=== PATIENT | female | born 1960 | race Caucasian/White ===

== ENCOUNTER 2024-02-27 13:43 | Inpatient (IN) ==
[2024-02-27 14:50] LABS: Hematocrit 37.6 % (35-45); Hemoglobin 12.5 g/dL (11.5-14.3); Mean Corpuscular Hemoglobin 29.1 pg (27-33); Mean Corpuscular Hgb Conc 33.3 g/dL (31-36); Mean Corpuscular Volume 87.3 fL (80-97); Mean Platelet Volume 6.7 fL (7.5-11.2); Platelet Count 563 10^3/uL (150-450); Red Blood Count 4.31 10^6/uL (3.63-4.92); Red Cell Distribution Width 15.4 % (12-17); White Blood Count 15.9 10^3/uL (3.8-11.8)
[2024-02-27 14:56] LABS: Venous Bicarbonate HCO3 24.4 mmol/L (24-28)
[2024-02-27 15:13] LABS: High Sens Troponin Baseline 25 pg/mL (<15)
[2024-02-27 15:37] LABS: ALT 94 U/L (7-52); Albumin 3.3 g/dL (3.2-5.2); Albumin/Globulin Ratio 1.1 (1-3); Alkaline Phosphatase 87 U/L (35-149); Blood Urea Nitrogen 22 mg/dL (6-24); CO2 Carbon Dioxide 27 mmol/L (22-32); Calcium 9.5 mg/dL (8.6-10.3); Chloride 87 mmol/L (101-111); Creatinine, Serum 0.69 mg/dL (0.51-0.95); Globulin 3.1 g/dL (2-4); Glucose 159 mg/dL (70-100); Sodium 123 mmol/L (135-145); Total Bilirubin 0.5 mg/dL (0.2-1.0); Total Protein 6.4 g/dL (6.4-8.9); eGFR CKD-EPI 96.3 (>60)
[2024-02-27 15:38] LABS: Anion Gap 9 mmol/L (2-16)
[2024-02-27 15:40] LABS: ABS Monocytes 1.2 10^3/uL (0.0-0.9); ABS Neutrophils 13.6 10^3/uL (1.5-7.6); ABS Nucleated RBC 0.02 10^3/ul; Eosinophil % 0.3 %; Lymphocyte % 6.6 %; Nucleated Red Blood Cells % 0.1 %/100WBC (0.0-0.8); RBC Morphology Normal (Normal)
[2024-02-27 15:41] LABS: TSH Ultra Thyroid Stim Horm 1.61 mcIU/mL (0.34-5.60)
[2024-02-27] MEDS: Piperacillin/Tazobac 3.375 BAG 3.375 GM/100 ML BAG IV ONE (16:05)
[2024-02-27] MEDS: Iohexol 350 (CONTRAST) 500 ML MDV IV ONE (16:28)
[2024-02-27 16:58] LABS: Magnesium 1.8 mg/dL (1.9-2.7); Potassium Redraw 4.7 mmol/L (3.5-5.0)
[2024-02-27] MEDS ORDERED: Ondansetron 4 mg VIAL 2 MG/ML 2 ml VIAL IV PRN (18:03)
[2024-02-27] MEDS ORDERED: Vancomycin 1,000 MG in NS 0.9% 250 ml 250 ML IVPB ONE (19:18)
[2024-02-27] MEDS ORDERED: Vancomycin per Pharmacy 1 EA NOTE FOLLOW UP SCH (20:00)
[2024-02-27 20:03] LABS: Urine Appearance Clear; Urine Bilirubin Negative (Negative); Urine Blood Trace (Negative); Urine Color Light-Yellow; Urine Glucose Negative (Negative); Urine Ketones Negative (Negative); Urine Nitrite Negative (Negative); Urine Protein 1+ (>=30 mg/dL) (Negative); Urine Specific Gravity 1.038 (1.002-1.030); Urine Urobilinogen Negative (Negative)
[2024-02-27 20:33] LABS: Urine Bacteria 1+ /HPF (Absent); Urine Red Blood Cell 1+(3-5/hpf) /HPF (0-Trace); Urine Squamous Epithelial Cell Present /HPF (Absent); Urine White Blood Cell Trace(0-5/hpf) /HPF (0-Trace)
[2024-02-27] MEDS: Furosemide 40 mg/4 ml IV VIAL IV SLOW PU ONE (20:39)
[2024-02-27] MEDS: methylPREDNISolone SOD SUCC 125 mg 2 ML VIAL IV ONE (20:39)
[2024-02-27 21:25] LABS: PCO2 Arterial 39 mmHg (35-45); PO2 Arterial 77 mmHg (80-100)
[2024-02-27 22:36] LABS: Osmolality Serum 272 mOsm/kg (275-295)
[2024-02-27] MEDS: Cefepime 2 GM in Dextrose 2 GM/50 ML BAG IV SCH (22:38)
[2024-02-27] MEDS: Vancomycin 1,250 MG in NS 0.9% 250 ml 250 ML IVPB ONE (23:35)
[2024-02-28 05:14] LABS: Hematocrit 35.6 % (35-45); Hemoglobin 12.1 g/dL (11.5-14.3); Mean Corpuscular Hemoglobin 29.7 pg (27-33); Mean Corpuscular Hgb Conc 33.9 g/dL (31-36); Mean Corpuscular Volume 87.6 fL (80-97); Mean Platelet Volume 6.8 fL (7.5-11.2); Platelet Count 590 10^3/uL (150-450); Red Blood Count 4.07 10^6/uL (3.63-4.92); Red Cell Distribution Width 15.9 % (12-17); White Blood Count 17.6 10^3/uL (3.8-11.8)
[2024-02-28 05:35] LABS: ABS Lymphocytes 0.5 10^3/uL (1.0-4.8); ABS Monocytes 0.4 10^3/uL (0.0-0.9); ABS Neutrophils 16.6 10^3/uL (1.5-7.6); ABS Nucleated RBC 0.03 10^3/ul; Eosinophil % 0.1 %; Lymphocyte % 2.9 %; Nucleated Red Blood Cells % 0.2 %/100WBC (0.0-0.8)
[2024-02-28 05:57] LABS: Albumin 3.3 g/dL (3.2-5.2); Calcium 9.2 mg/dL (8.6-10.3); Creatinine, Serum 0.71 mg/dL (0.51-0.95); Globulin 3.2 g/dL (2-4); Magnesium 1.7 mg/dL (1.9-2.7); Potassium 4.5 mmol/L (3.5-5.0); Total Bilirubin 0.4 mg/dL (0.2-1.0); Total Protein 6.5 g/dL (6.4-8.9); eGFR CKD-EPI 94.3 (>60)
[2024-02-28] MEDS: Sulfur Hexaflouride MICROSPHR 25 MG VIAL IV ONE ×2 (07:18→12:46)
[2024-02-28] MEDS: Magnesium Sulfate 2 gm BAG 2 GM/50 ML BAG IV ONE (07:54)
[2024-02-28] MEDS: Vancomycin 750 MG in NS 0.9% 250 ML IVPB SCH (09:07)
[2024-02-28] MEDS: Lidocaine 2% w EPI 1:100,000 20 ML MDV VIAL INJ ONE (10:15)
[2024-02-28 11:08] LABS: Body Fluid Total Nucleated 2165 /mcL
[2024-02-28 11:13] LABS: Body Fluid Appearance Cloudy; Body Fluid Color Amber; Body Fluid Source Pleural Fluid
[2024-02-28] MEDS: methylPREDNISolone SOD SUCC 125 mg 2 ML VIAL IV SCH (11:52)
[2024-02-28] MEDS: Enoxaparin 80 MG/0.8 ML SYR SUBCUT SCH (11:53)
[2024-02-28] MEDS: Heparin DRIP 25,000 UNITS BAG 25,000 UNITS/250 ML BAG IV SCH ×2 (13:55→14:28)
[2024-02-28 14:03] LABS: Body Fluid Mono 12 %; Body Fluid Other Cells 12; Body Fluid Total Cells Counted 200
[2024-02-28] MEDS: Heparin 5000 UNITS/ML 1 mL VIAL IV SCH (14:27)
[2024-02-28 17:47] LABS: Urine Osmo 567 mOsm/kg (150-1150)
[2024-02-28] MEDS: Cefepime 2 GM in Dextrose 2 GM/50 ML BAG IV SCH (23:57)
[2024-02-29] MEDS: Haloperidol 5 mg/ml SDV IV/IM 5 MG/ML AMP IV SLOW PU ONE (01:12)
[2024-02-29] MEDS: NS 0.9% 1000 ml BAG 1,000 ML IV ONE (01:22)
[2024-02-29 04:09] LABS: Hematocrit 36.3 % (35-45); Hemoglobin 12.2 g/dL (11.5-14.3); Mean Corpuscular Hemoglobin 29.4 pg (27-33); Mean Corpuscular Hgb Conc 33.6 g/dL (31-36); Mean Corpuscular Volume 87.7 fL (80-97); Mean Platelet Volume 6.9 fL (7.5-11.2); Platelet Count 625 10^3/uL (150-450); Red Blood Count 4.15 10^6/uL (3.63-4.92); Red Cell Distribution Width 15.5 % (12-17); White Blood Count 16.2 10^3/uL (3.8-11.8)
[2024-02-29 04:46] LABS: Calcium 9.4 mg/dL (8.6-10.3); Creatinine, Serum 0.65 mg/dL (0.51-0.95); Potassium 4.2 mmol/L (3.5-5.0); eGFR CKD-EPI 97.6 (>60)
[2024-02-29 05:15] LABS: ABS Basophils 0.1 10^3/uL (0.0-0.1); ABS Monocytes 1.7 10^3/uL (0.0-0.9); ABS Neutrophils 13.3 10^3/uL (1.5-7.6); ABS Nucleated RBC 0.03 10^3/ul; Eosinophil % 0.2 %; Lymphocyte % 6.3 %; Nucleated Red Blood Cells % 0.2 %/100WBC (0.0-0.8)
[2024-02-29] MEDS ORDERED: Vancomycin Trough Check NOTE FOLLOW UP ONE (07:30)
[2024-02-29] MEDS: Metoprolol Tartrate 5 mg VIAL 5 ml VIAL (1 mg/ml) IV ONE (11:02)
[2024-02-29 14:33] LABS: Fluid Type, Protein, Total PLEURAL FLUID; Total Protein, BF 3.3 g/dL
[2024-02-29] MEDS: Nitro 2% OINT (Nitroglycerin) 1 INCH/PAK TOPICAL ONE (14:33)
[2024-02-29 14:47] LABS: High Sensitivity Troponin 1 Hr 31 pg/mL (<15)
[2024-02-29 16:19] LABS: Lactate Dehydrogenase, BF 261 U/L
[2024-03-01 00:37] LABS: Urine Osmo 302 mOsm/kg (150-1150)
[2024-03-01 06:31] LABS: Hematocrit 34.6 % (35-45); Hemoglobin 11.9 g/dL (11.5-14.3); Mean Corpuscular Hemoglobin 30.3 pg (27-33); Mean Corpuscular Hgb Conc 34.5 g/dL (31-36); Mean Platelet Volume 6.6 fL (7.5-11.2); Platelet Count 608 10^3/uL (150-450); Red Blood Count 3.93 10^6/uL (3.63-4.92); White Blood Count 12.8 10^3/uL (3.8-11.8)
[2024-03-01 07:22] LABS: Calcium 9.2 mg/dL (8.6-10.3); Creatinine, Serum 0.62 mg/dL (0.51-0.95); Magnesium 1.8 mg/dL (1.9-2.7); Potassium 4.9 mmol/L (3.5-5.0); eGFR CKD-EPI 98.8 (>60)
[2024-03-01] MEDS: Amiodarone 400 mg TAB PO SCH (08:19)
[2024-03-01 08:43] LABS: ABS Basophils 0.1 10^3/uL (0.0-0.1); ABS Eosinophils 0.1 10^3/uL (0.0-0.5); ABS Lymphocytes 1.1 10^3/uL (1.0-4.8); ABS Monocytes 1.4 10^3/uL (0.0-0.9); ABS Neutrophils 10.1 10^3/uL (1.5-7.6); ABS Nucleated RBC 0.01 10^3/ul; Eosinophil % 0.5 %; Lymphocyte % 8.2 %; Nucleated Red Blood Cells % 0.1 %/100WBC (0.0-0.8); RBC Morphology Normal (Normal)
[2024-03-01] MEDS: cefTRIAXone 1 gm/50 mL D5W 1 GM/50 ML BAG IV SCH (10:54)
[2024-03-01] MEDS: Nitro 2% OINT (Nitroglycerin) 1 INCH/PAK TOPICAL ONE (14:24)
[2024-03-01] MEDS: Furosemide 40 mg/4 ml IV VIAL IV ONE (15:04)
[2024-03-01] MEDS: Senna TAB 8.6 mg TAB PO PRN (20:10)
[2024-03-01] MEDS: Albuterol/Ipratropium NEB.SOL (2.5/0.5 MG) 3 ML NEB.SOLN INH PRN (23:15)
[2024-03-02 03:05] LABS: ABS Eosinophils 0.1 10^3/uL (0.0-0.5); ABS Lymphocytes 0.9 10^3/uL (1.0-4.8); ABS Monocytes 1.3 10^3/uL (0.0-0.9); ABS Neutrophils 7.6 10^3/uL (1.5-7.6); ABS Nucleated RBC 0.01 10^3/ul; Hematocrit 32.4 % (35-45); Hemoglobin 11.2 g/dL (11.5-14.3); Lymphocyte % 8.7 %; Mean Corpuscular Hgb Conc 34.4 g/dL (31-36); Mean Corpuscular Volume 87.1 fL (80-97); Mean Platelet Volume 6.9 fL (7.5-11.2); Nucleated Red Blood Cells % 0.1 %/100WBC (0.0-0.8); Platelet Count 563 10^3/uL (150-450); Red Blood Count 3.72 10^6/uL (3.63-4.92); Red Cell Distribution Width 16.3 % (12-17); White Blood Count 9.9 10^3/uL (3.8-11.8)
[2024-03-02 03:29] LABS: Calcium 8.4 mg/dL (8.6-10.3); Creatinine, Serum 0.69 mg/dL (0.51-0.95); Magnesium 1.8 mg/dL (1.9-2.7); Potassium 4.4 mmol/L (3.5-5.0); eGFR CKD-EPI 96.3 (>60)
[2024-03-02 09:21] LABS: Phosphorus 2.9 mg/dL (2.5-5.0)
[2024-03-02] MEDS: Magnesium Sulfate 2 gm BAG 2 GM/50 ML BAG IVPB ONE (09:42)
[2024-03-02 13:50] LABS: Ferritin 451.6 ng/mL (11-307)
[2024-03-02] MEDS: Albuterol HFA INHALER 8 gm MDI INH PRN (17:31)
[2024-03-03 08:16] LABS: ABS Eosinophils 0.1 10^3/uL (0.0-0.5); ABS Lymphocytes 0.6 10^3/uL (1.0-4.8); ABS Monocytes 1.2 10^3/uL (0.0-0.9); ABS Neutrophils 7.7 10^3/uL (1.5-7.6); Eosinophil % 0.8 %; Hematocrit 34.6 % (35-45); Hemoglobin 11.9 g/dL (11.5-14.3); Lymphocyte % 6.5 %; Mean Corpuscular Hgb Conc 34.5 g/dL (31-36); Mean Corpuscular Volume 87.2 fL (80-97); Mean Platelet Volume 6.6 fL (7.5-11.2); Platelet Count 546 10^3/uL (150-450); Red Blood Count 3.97 10^6/uL (3.63-4.92); White Blood Count 9.7 10^3/uL (3.8-11.8)
[2024-03-03 08:34] LABS: Calcium 8.6 mg/dL (8.6-10.3); Creatinine, Serum 0.68 mg/dL (0.51-0.95); Potassium 4.4 mmol/L (3.5-5.0); eGFR CKD-EPI 96.6 (>60)
[2024-03-03] MEDS: Polyethylene Glycol 3350 17 GM PACKET PO PRN (09:16)
[2024-03-04] MEDS: Nitro 2% OINT (Nitroglycerin) 1 INCH/PAK TOPICAL ONE (01:59)
[2024-03-04 06:39] LABS: Hematocrit 32.9 % (35-45); Hemoglobin 11.1 g/dL (11.5-14.3); Mean Corpuscular Hemoglobin 29.8 pg (27-33); Mean Corpuscular Hgb Conc 33.8 g/dL (31-36); Mean Corpuscular Volume 88.2 fL (80-97); Mean Platelet Volume 6.4 fL (7.5-11.2); Platelet Count 524 10^3/uL (150-450); Red Blood Count 3.73 10^6/uL (3.63-4.92); Red Cell Distribution Width 16.6 % (12-17); White Blood Count 8.5 10^3/uL (3.8-11.8)
[2024-03-04 07:01] LABS: ABS Basophils 0.1 10^3/uL (0.0-0.1); ABS Eosinophils 0.1 10^3/uL (0.0-0.5); ABS Lymphocytes 0.6 10^3/uL (1.0-4.8); ABS Neutrophils 6.7 10^3/uL (1.5-7.6); Eosinophil % 1.1 %; Lymphocyte % 7.2 %
[2024-03-04 07:29] LABS: Creatinine, Serum 0.71 mg/dL (0.51-0.95); Potassium 4.3 mmol/L (3.5-5.0); eGFR CKD-EPI 94.3 (>60)
[2024-03-04] MEDS ORDERED: Magnesium Hydroxide LIQ 30 ML UDC PO PRN (08:15)
[2024-03-04] MEDS: Magnesium Hydroxide LIQ 30 ML UDC PO SCH (09:22)
[2024-03-04] MEDS: Polyethylene Glycol 3350 17 GM PACKET PO SCH (09:25)
[2024-03-04 09:53] VITALS: BP 96/57
[2024-03-04] MEDS ORDERED: Senna TAB 8.6 mg TAB PO SCH (21:00)
== END 2024-03-04 13:39 | disposition home or self-care (01) | DRG 871 ==
LOC: ED 13:43 → SUATTDRO 18:03 → EDHOLD 18:03 → ICU 02-28 04:00 → MEDTELE 03-01 16:28
PROVIDERS: ADMIT Internal Medicine; ATTEND Internal Medicine

== ENCOUNTER 2024-04-02 06:21 | Inpatient (IN) ==
[2024-04-02 07:04] LABS: PCO2 Arterial 37 mmHg (35-45); PO2 Arterial 67 mmHg (80-100)
[2024-04-02 07:18] LABS: ABS Basophils 0.1 10^3/uL (0.0-0.1); ABS Eosinophils 0.1 10^3/uL (0.0-0.5); ABS Lymphocytes 0.6 10^3/uL (1.0-4.8); ABS Monocytes 0.9 10^3/uL (0.0-0.9); ABS Neutrophils 7.1 10^3/uL (1.5-7.6); Eosinophil % 0.8 %; Hematocrit 33.9 % (35-45); Hemoglobin 11.5 g/dL (11.5-14.3); Mean Corpuscular Hemoglobin 30.5 pg (27-33); Mean Corpuscular Volume 89.8 fL (80-97); Mean Platelet Volume 7.1 fL (7.5-11.2); Platelet Count 405 10^3/uL (150-450); Red Blood Count 3.77 10^6/uL (3.63-4.92); White Blood Count 8.7 10^3/uL (3.8-11.8)
[2024-04-02 07:30] LABS: INR 1.1 (0.83-1.13)
[2024-04-02 08:00] LABS: Albumin 3.4 g/dL (3.2-5.2); Albumin/Globulin Ratio 1.4 (1-3); C Reactive Protein 5.6 mg/L (<8.01); Calcium 9.1 mg/dL (8.6-10.3); Creatinine, Serum 0.9 mg/dL (0.51-0.95); Globulin 2.5 g/dL (2-4); Potassium 4.1 mmol/L (3.5-5.0); Total Bilirubin 0.4 mg/dL (0.2-1.0); Total Protein 5.9 g/dL (6.4-8.9); eGFR CKD-EPI 70.9 (>60)
[2024-04-02] MEDS: Furosemide 40 mg/4 ml IV VIAL IV SLOW PU ONE (08:23)
[2024-04-02] MEDS: Iohexol 350 (CONTRAST) 500 ML MDV IV ONE (08:54)
[2024-04-02 10:26] LABS: High Sensitivity Troponin 1 Hr 9 pg/mL (<15)
[2024-04-02 10:39] LABS: Urine Appearance Clear; Urine Bilirubin Negative (Negative); Urine Blood Negative (Negative); Urine Color Colorless; Urine Glucose Negative (Negative); Urine Ketones Negative (Negative); Urine Nitrite Negative (Negative); Urine Protein Negative (Negative); Urine Specific Gravity 1.011 (1.002-1.030); Urine Urobilinogen Negative (Negative)
[2024-04-02] MEDS ORDERED: Albuterol HFA INHALER 8 gm MDI INH PRN (13:44)
[2024-04-02] MEDS: Furosemide 40 mg/4 ml IV VIAL IV ONE (15:00)
[2024-04-02] MEDS: Benzocaine/Menthol LOZ PO PRN (21:14)
[2024-04-02] MEDS: Heparin 5000 UNITS/ML 1 mL VIAL SUBCUT SCH (22:59)
[2024-04-03 05:54] LABS: ABS Eosinophils 0.1 10^3/uL (0.0-0.5); ABS Lymphocytes 0.6 10^3/uL (1.0-4.8); ABS Monocytes 1.2 10^3/uL (0.0-0.9); ABS Neutrophils 6.6 10^3/uL (1.5-7.6); ABS Nucleated RBC 0.01 10^3/ul; Eosinophil % 1.4 %; Hematocrit 34.7 % (35-45); Hemoglobin 11.7 g/dL (11.5-14.3); Lymphocyte % 7.4 %; Mean Corpuscular Hemoglobin 30.1 pg (27-33); Mean Corpuscular Hgb Conc 33.5 g/dL (31-36); Mean Corpuscular Volume 89.8 fL (80-97); Mean Platelet Volume 6.6 fL (7.5-11.2); Nucleated Red Blood Cells % 0.1 %/100WBC (0.0-0.8); Platelet Count 387 10^3/uL (150-450); Red Blood Count 3.87 10^6/uL (3.63-4.92); Red Cell Distribution Width 16.6 % (12-17); White Blood Count 8.6 10^3/uL (3.8-11.8)
[2024-04-03 06:30] LABS: Creatinine, Serum 0.99 mg/dL (0.51-0.95); Magnesium 1.7 mg/dL (1.9-2.7); Phosphorus 4.3 mg/dL (2.5-5.0); Potassium 3.7 mmol/L (3.5-5.0); eGFR CKD-EPI 63.3 (>60)
[2024-04-03] MEDS: [UNRECOGNIZED DRUG - OTHER] PO SCH (10:27)
[2024-04-03] MEDS: Magnesium Sulfate 2 gm BAG 2 GM/50 ML BAG IVPB ONE (10:30)
[2024-04-03] MEDS: Furosemide 40 mg/4 ml IV VIAL IV SLOW PU ONE (10:43)
[2024-04-03] MEDS: Enoxaparin 80 MG/0.8 ML SYR SUBCUT SCH (19:41)
[2024-04-04 09:49] LABS: ABS Basophils 0.1 10^3/uL (0.0-0.1); ABS Eosinophils 0.1 10^3/uL (0.0-0.5); ABS Lymphocytes 0.5 10^3/uL (1.0-4.8); ABS Monocytes 1.1 10^3/uL (0.0-0.9); ABS Neutrophils 6.8 10^3/uL (1.5-7.6); Eosinophil % 1.2 %; Hematocrit 30.7 % (35-45); Hemoglobin 10.6 g/dL (11.5-14.3); Lymphocyte % 5.7 %; Mean Corpuscular Hemoglobin 30.8 pg (27-33); Mean Corpuscular Hgb Conc 34.5 g/dL (31-36); Mean Corpuscular Volume 89.4 fL (80-97); Mean Platelet Volume 6.8 fL (7.5-11.2); Platelet Count 352 10^3/uL (150-450); Red Blood Count 3.44 10^6/uL (3.63-4.92); Red Cell Distribution Width 17.2 % (12-17); White Blood Count 8.6 10^3/uL (3.8-11.8)
[2024-04-04 10:06] LABS: Calcium 8.9 mg/dL (8.6-10.3); Creatinine, Serum 0.8 mg/dL (0.51-0.95); Magnesium 1.9 mg/dL (1.9-2.7); Potassium 3.4 mmol/L (3.5-5.0); eGFR CKD-EPI 81.7 (>60)
[2024-04-04] MEDS: Furosemide 40 mg/4 ml IV VIAL IV SLOW PU ONE (11:08)
[2024-04-04] MEDS: Potassium Chlor 20 meq TAB.ER PO ONE (13:58)
[2024-04-04] MEDS: Morphine 2 MG/ML SYRINGE IV ONE ×2 (14:07→14:10)
[2024-04-04] MEDS: Lidocaine PATCH 5% PATCH TRANSDERM SCH (16:47)
[2024-04-05] MEDS: Morphine 2 MG/ML SYRINGE IV ONE (01:05)
[2024-04-05 07:31] LABS: Hematocrit 32.1 % (35-45); Hemoglobin 10.8 g/dL (11.5-14.3); Mean Corpuscular Hemoglobin 30.2 pg (27-33); Mean Corpuscular Hgb Conc 33.6 g/dL (31-36); Mean Corpuscular Volume 89.9 fL (80-97); Red Blood Count 3.57 10^6/uL (3.63-4.92); Red Cell Distribution Width 16.9 % (12-17)
[2024-04-05 07:39] LABS: Anion Gap 7 mmol/L (2-16); Blood Urea Nitrogen 13 mg/dL (6-24); CO2 Carbon Dioxide 27 mmol/L (22-32); Calcium 8.9 mg/dL (8.6-10.3); Chloride 93 mmol/L (101-111); Creatinine, Serum 0.78 mg/dL (0.51-0.95); Glucose 90 mg/dL (70-100); Sodium 127 mmol/L (135-145); eGFR CKD-EPI 84.2 (>60)
[2024-04-05 08:21] LABS: ABS Basophils 0.1 10^3/uL (0.0-0.1); ABS Eosinophils 0.1 10^3/uL (0.0-0.5); ABS Lymphocytes 0.7 10^3/uL (1.0-4.8); ABS Monocytes 1.5 10^3/uL (0.0-0.9); ABS Neutrophils 8.9 10^3/uL (1.5-7.6); ABS Nucleated RBC 0.04 10^3/ul; Eosinophil % 1.1 %; Lymphocyte % 6.6 %; Mean Platelet Volume 7.4 fL (7.5-11.2); Nucleated Red Blood Cells % 0.4 %/100WBC (0.0-0.8); Platelet Count 320 10^3/uL (150-450); White Blood Count 11.3 10^3/uL (3.8-11.8)
[2024-04-05] MEDS ORDERED: Buffered Lidocaine 1% SYRIN 1 ml ONE (09:33)
[2024-04-05] MEDS ORDERED: ceFAZolin 2 GM in NS PREMIX 2 GM/100 ML BAG IVPB ONE (10:09)
[2024-04-05] MEDS: Furosemide 40 mg/4 ml IV VIAL IV SLOW PU ONE ×2 (15:35→17:13)
[2024-04-06 07:54] LABS: Hematocrit 32.2 % (35-45); Hemoglobin 10.9 g/dL (11.5-14.3); Mean Corpuscular Hemoglobin 30.5 pg (27-33); Mean Corpuscular Hgb Conc 33.8 g/dL (31-36); Mean Corpuscular Volume 90.1 fL (80-97); Platelet Count 352 10^3/uL (150-450); Red Blood Count 3.57 10^6/uL (3.63-4.92); White Blood Count 9.9 10^3/uL (3.8-11.8)
[2024-04-06 22:32] LABS: Body Fluid Total Nucleated 2117 /mcL
[2024-04-06 22:36] LABS: Body Fluid Source Pleural Fluid
[2024-04-06 22:37] LABS: Body Fluid Appearance Cloudy; Body Fluid Color Yellow
[2024-04-06] MEDS: Senna TAB 8.6 mg TAB PO PRN (22:49)
[2024-04-07 01:16] LABS: Body Fluid Mono 3 %; Body Fluid Other Cells 4; Body Fluid Total Cells Counted 200
[2024-04-07] MEDS: Magnesium Hydroxide LIQ 30 ML UDC PO PRN (06:04)
[2024-04-07] MEDS: Morphine 2 MG/ML SYRINGE IV ONE (09:31)
[2024-04-07] MEDS: Furosemide 40 mg/4 ml IV VIAL IV SLOW PU ONE (11:35)
[2024-04-07] MEDS: Enoxaparin 100 MG/ML SYR SUBCUT ONE (18:46)
[2024-04-08] MEDS: Polyethylene Glycol 3350 17 GM PACKET PO SCH (02:30)
[2024-04-08 11:30] LABS: Body Fluid Appearance Clear; Body Fluid Color Yellow; Body Fluid Source Pleural Fluid
[2024-04-08 12:17] LABS: Body Fluid Mono 13 %; Body Fluid Other Cells 94; Body Fluid Total Cells Counted 200
[2024-04-08 12:18] LABS: Body Fluid Total Nucleated 306 /mcL
[2024-04-08] MEDS: Furosemide 40 mg/4 ml IV VIAL IV ONE (12:33)
[2024-04-08] MEDS: Enoxaparin 80 MG/0.8 ML SYR SUBCUT SCH (12:33)
[2024-04-08 16:21] LABS: Hemoglobin 11.6 g/dL (11.5-14.3); Mean Corpuscular Hemoglobin 29.8 pg (27-33); Mean Corpuscular Hgb Conc 33.2 g/dL (31-36); Mean Corpuscular Volume 89.7 fL (80-97); Mean Platelet Volume 6.6 fL (7.5-11.2); Platelet Count 324 10^3/uL (150-450); White Blood Count 8.6 10^3/uL (3.8-11.8)
[2024-04-08 16:50] LABS: Creatinine, Serum 1.09 mg/dL (0.51-0.95); Magnesium 1.9 mg/dL (1.9-2.7); eGFR CKD-EPI 56.4 (>60)
[2024-04-09 11:05] LABS: Lactate Dehydrogenase, BF 108 U/L
[2024-04-09 11:08] VITALS: BP 90/53
[2024-04-09 11:10] LABS: Fluid Type, Protein, Total PLEURAL FLUID; Glucose, BF 128 mg/dL; Total Protein, BF 3.5 g/dL
[2024-04-09 11:34] LABS: Calcium 8.9 mg/dL (8.6-10.3); Creatinine, Serum 0.93 mg/dL (0.51-0.95); Magnesium 1.9 mg/dL (1.9-2.7); Potassium 3.9 mmol/L (3.5-5.0); eGFR CKD-EPI 68.2 (>60)
[2024-04-09 11:46] LABS: Hematocrit 32.4 % (35-45); Mean Corpuscular Hemoglobin 30.5 pg (27-33); Mean Corpuscular Hgb Conc 33.9 g/dL (31-36); Mean Platelet Volume 7.3 fL (7.5-11.2); Platelet Count 310 10^3/uL (150-450); Red Blood Count 3.61 10^6/uL (3.63-4.92); Red Cell Distribution Width 16.7 % (12-17); White Blood Count 7.3 10^3/uL (3.8-11.8)
[2024-04-09] MEDS: Furosemide 40 mg/4 ml IV VIAL IV SLOW PU ONE (12:04)
[2024-04-11 10:12] LABS: Albumin, BF 2.3 g/dL; Fluid Type, Albumin PLEURAL FLUID; Fluid Type, Amylase PLEURAL FLUID; Fluid Type, Protein, Total PLEURAL FLUID; Fluid Type: PLEURAL FLUID; Glucose, BF 111 mg/dL; Total Protein, BF 3.2 g/dL
[2024-04-11 10:14] LABS: Lactate Dehydrogenase, BF 92 U/L
[2024-04-11 10:52] LABS: Fluid Type: PLEURAL FLUID; Triglycerides (BF) 16 mg/dL
[2024-04-11 10:53] LABS: Body Fluid Bilirubin 0.4 mg/dL; Fluid Type PLEURAL FLUID
== END 2024-04-09 14:20 | disposition home or self-care (01) | DRG 987 ==
LOC: ED 06:21 → EDHOLD 06:21 → SUATTDRO 12:28 → MEDTELE 04-03 15:42
PROVIDERS: ADMIT Internal Medicine; ATTEND Student in an Organized Health Care Education/Training Program

== ENCOUNTER 2024-06-25 10:35 | Inpatient (IN) ==
[2024-06-25] MEDS: Lactated Ringers 1000 ml BAG 1,000 ML IV ONE (11:40)
[2024-06-25 11:52] LABS: ABS Lymphocytes 0.4 10^3/uL (1.0-4.8); ABS Monocytes 0.6 10^3/uL (0.0-0.9); ABS Neutrophils 5.8 10^3/uL (1.5-7.6); Eosinophil % 0.5 %; Hematocrit 42.4 % (35-45); Hemoglobin 14.1 g/dL (11.5-14.3); Lymphocyte % 6.4 %; Mean Corpuscular Hemoglobin 29.8 pg (27-33); Mean Corpuscular Hgb Conc 33.4 g/dL (31-36); Mean Corpuscular Volume 89.2 fL (80-97); Mean Platelet Volume 7.7 fL (7.5-11.2); Nucleated Red Blood Cells % 0.1 %/100WBC (0.0-0.8); Platelet Count 413 10^3/uL (150-450); Red Blood Count 4.75 10^6/uL (3.63-4.92); Red Cell Distribution Width 15.9 % (12-17); White Blood Count 6.8 10^3/uL (3.8-11.8)
[2024-06-25 12:19] LABS: High Sens Troponin Baseline 8 pg/mL (<15)
[2024-06-25 12:22] LABS: ALT 11 U/L (7-52); Albumin 3.7 g/dL (3.2-5.2); Albumin/Globulin Ratio 1.4 (1-3); Alkaline Phosphatase 97 U/L (35-149); Anion Gap 8 mmol/L (2-16); Blood Urea Nitrogen 27 mg/dL (6-24); C Reactive Protein 5.05 mg/L (<8.01); CO2 Carbon Dioxide 25 mmol/L (22-32); Calcium 9.9 mg/dL (8.6-10.3); Chloride 93 mmol/L (101-111); Creatinine, Serum 1.47 mg/dL (0.51-0.95); Globulin 2.7 g/dL (2-4); Glucose 114 mg/dL (70-100); Sodium 126 mmol/L (135-145); Total Protein 6.4 g/dL (6.4-8.9); eGFR CKD-EPI 39.4 (>60)
[2024-06-25] MEDS: Iodixanol 320 (CONTRAST) 100 ML SDV IV ONE (13:12)
[2024-06-25] MEDS ORDERED: Sulfur Hexaflouride MICROSPHR 25 MG VIAL IV PRN (14:04)
[2024-06-25 15:27] LABS: Potassium Redraw 4.1 mmol/L (3.5-5.0)
[2024-06-25] MEDS: Norepinephrine 4 MG/250mL D5W 4,000 MCG/250 ML BAG IV SCH (17:30)
[2024-06-25] MEDS ORDERED: Albuterol HFA INHALER 8 gm MDI INH PRN (17:55)
[2024-06-25] MEDS: Norepinephrine 4 MG/250mL D5W 4,000 MCG/250 ML BAG IV ONE (18:07)
[2024-06-25] MEDS: Lidocaine 1% VIAL 10 MG/ML 30 ML VIAL ONE (18:07)
[2024-06-25] MEDS: Albumin Human 25% 25 GM/100 ML BTL IV ONE (18:24)
[2024-06-25] MEDS: Heparin 5000 UNITS/ML 1 mL VIAL SUBCUT SCH (21:05)
[2024-06-26 04:15] LABS: ABS Lymphocytes 0.5 10^3/uL (1.0-4.8); ABS Monocytes 0.6 10^3/uL (0.0-0.9); ABS Neutrophils 8.4 10^3/uL (1.5-7.6); Eosinophil % 0.2 %; Hematocrit 42.4 % (35-45); Hemoglobin 14.3 g/dL (11.5-14.3); Lymphocyte % 5.4 %; Mean Corpuscular Hemoglobin 29.8 pg (27-33); Mean Corpuscular Hgb Conc 33.6 g/dL (31-36); Mean Corpuscular Volume 88.7 fL (80-97); Mean Platelet Volume 7.5 fL (7.5-11.2); Platelet Count 473 10^3/uL (150-450); Red Blood Count 4.78 10^6/uL (3.63-4.92); White Blood Count 9.7 10^3/uL (3.8-11.8)
[2024-06-26 04:31] LABS: Calcium 9.6 mg/dL (8.6-10.3); Creatinine, Serum 1.24 mg/dL (0.51-0.95); Magnesium 1.8 mg/dL (1.9-2.7); Potassium 4.6 mmol/L (3.5-5.0); eGFR CKD-EPI 48.3 (>60)
[2024-06-26] MEDS: Magnesium Sulfate 2 gm BAG 2 GM/50 ML BAG IVPB ONE (05:53)
[2024-06-26 11:41] LABS: Body Fluid Total Nucleated 454 /mcL
[2024-06-26 11:50] LABS: Body Fluid Appearance Bloody; Body Fluid Color Red; Body Fluid Source Pleural Fluid
[2024-06-26 12:48] LABS: Body Fluid Mono 21 %; Body Fluid Other Cells 45; Body Fluid Total Cells Counted 200
[2024-06-27 05:13] LABS: ABS Basophils 0.1 10^3/uL (0.0-0.1); ABS Lymphocytes 0.7 10^3/uL (1.0-4.8); ABS Monocytes 0.8 10^3/uL (0.0-0.9); ABS Neutrophils 5.7 10^3/uL (1.5-7.6); Eosinophil % 0.6 %; Hematocrit 39.1 % (35-45); Hemoglobin 13.5 g/dL (11.5-14.3); Lymphocyte % 9.8 %; Mean Corpuscular Hgb Conc 34.6 g/dL (31-36); Mean Corpuscular Volume 86.9 fL (80-97); Mean Platelet Volume 7.5 fL (7.5-11.2); Nucleated Red Blood Cells % 0.1 %/100WBC (0.0-0.8); Platelet Count 359 10^3/uL (150-450); Red Cell Distribution Width 16.2 % (12-17); White Blood Count 7.3 10^3/uL (3.8-11.8)
[2024-06-27 06:15] LABS: Anion Gap 6 mmol/L (2-16); Blood Urea Nitrogen 13 mg/dL (6-24); CO2 Carbon Dioxide 24 mmol/L (22-32); Calcium 8.6 mg/dL (8.6-10.3); Chloride 98 mmol/L (101-111); Creatinine, Serum 0.78 mg/dL (0.51-0.95); Glucose 124 mg/dL (70-100); Sodium 128 mmol/L (135-145); eGFR CKD-EPI 84.2 (>60)
[2024-06-27 08:35] LABS: Magnesium 1.8 mg/dL (1.9-2.7); Potassium Redraw 4.1 mmol/L (3.5-5.0)
[2024-06-27 16:31] VITALS: BP 85/55
[2024-06-28 13:22] LABS: Fluid Type, Protein, Total PLEURAL FLUID; Total Protein, BF 3.7 g/dL
[2024-06-28 13:22] LABS: Fluid Type, Protein, Total PLEURAL FLUID; Total Protein, BF 3.3 g/dL
[2024-06-28 15:31] LABS: Lactate Dehydrogenase, BF 122 U/L
[2024-06-28 15:31] LABS: Lactate Dehydrogenase, BF 110 U/L
== END 2024-06-27 16:50 | disposition home or self-care (01) | DRG 189 ==
LOC: ED 10:35 → EDHOLD 14:49 → ICU 16:33
PROVIDERS: ADMIT Internal Medicine Critical Care Medicine; ATTEND Internal Medicine Critical Care Medicine

== ENCOUNTER 2024-07-03 19:30 | Inpatient (IN) ==
[2024-07-03 21:13] LABS: ABS Lymphocytes 0.5 10^3/uL (1.0-4.8); ABS Monocytes 0.7 10^3/uL (0.0-0.9); ABS Neutrophils 5.3 10^3/uL (1.5-7.6); Eosinophil % 0.4 %; Lymphocyte % 7.6 %; Mean Corpuscular Hemoglobin 29.3 pg (27-33); Mean Corpuscular Hgb Conc 33.3 g/dL (31-36); Mean Corpuscular Volume 88.2 fL (80-97); Mean Platelet Volume 6.7 fL (7.5-11.2); Platelet Count 358 10^3/uL (150-450); Red Blood Count 4.42 10^6/uL (3.63-4.92); White Blood Count 6.5 10^3/uL (3.8-11.8)
[2024-07-03 21:36] LABS: High Sens Troponin Baseline 25 pg/mL (<15)
[2024-07-03 21:49] LABS: ALT 16 U/L (7-52); Albumin 3.7 g/dL (3.2-5.2); Albumin/Globulin Ratio 1.5 (1-3); Alkaline Phosphatase 92 U/L (35-149); Anion Gap 5 mmol/L (2-16); Blood Urea Nitrogen 12 mg/dL (6-24); CO2 Carbon Dioxide 29 mmol/L (22-32); Calcium 9.4 mg/dL (8.6-10.3); Chloride 97 mmol/L (101-111); Creatinine, Serum 0.76 mg/dL (0.51-0.95); Globulin 2.4 g/dL (2-4); Glucose 109 mg/dL (70-100); Sodium 131 mmol/L (135-145); Total Bilirubin 0.9 mg/dL (0.2-1.0); Total Protein 6.1 g/dL (6.4-8.9); eGFR CKD-EPI 86.9 (>60)
[2024-07-03 22:46] LABS: High Sensitivity Troponin 1 Hr 23 pg/mL (<15)
[2024-07-04] MEDS: Albuterol HFA INHALER 8 gm MDI INH PRN (00:30)
[2024-07-04] MEDS: Furosemide 40 mg/4 ml IV VIAL IV ONE (01:20)
[2024-07-04 01:58] LABS: PCO2 Arterial 47 mmHg (35-45); PO2 Arterial 94 mmHg (80-100)
[2024-07-04] MEDS ORDERED: Morphine 10 MG/ML VIAL (1 ml) IV PRN ×3 (04:42→04:45)
[2024-07-04] MEDS ORDERED: Naloxone Nasal Spray 4 MG/0.1 ML NASAL.SPR INTRANASAL PRN (04:44)
[2024-07-04] MEDS: Morphine 2 MG/ML SYRINGE IV PRN (04:49)
[2024-07-04] MEDS: Morphine 2 MG/ML SYRINGE ONE (05:19)
[2024-07-04 10:25] LABS: ABS Lymphocytes 0.4 10^3/uL (1.0-4.8); ABS Monocytes 0.5 10^3/uL (0.0-0.9); ABS Neutrophils 5.2 10^3/uL (1.5-7.6); Eosinophil % 0.5 %; Hematocrit 38.7 % (35-45); Hemoglobin 13.3 g/dL (11.5-14.3); Lymphocyte % 6.7 %; Mean Corpuscular Hemoglobin 30.1 pg (27-33); Mean Corpuscular Hgb Conc 34.4 g/dL (31-36); Mean Corpuscular Volume 87.4 fL (80-97); Mean Platelet Volume 6.7 fL (7.5-11.2); Platelet Count 352 10^3/uL (150-450); Red Blood Count 4.43 10^6/uL (3.63-4.92); Red Cell Distribution Width 15.5 % (12-17); White Blood Count 6.2 10^3/uL (3.8-11.8)
[2024-07-04 11:03] LABS: Creatinine, Serum 0.75 mg/dL (0.51-0.95); Potassium 3.9 mmol/L (3.5-5.0); eGFR CKD-EPI 88.3 (>60)
[2024-07-04 17:12] LABS: Body Fluid Total Nucleated 919 /mcL
[2024-07-04 17:48] LABS: Body Fluid Mono 7 %; Body Fluid Other Cells 5; Body Fluid Total Cells Counted 200
[2024-07-04 17:49] LABS: Body Fluid Appearance Clear; Body Fluid Color Yellow; Body Fluid Source Pleural Fluid
[2024-07-04] MEDS: Heparin DRIP 25,000 UNITS BAG 25,000 UNITS/250 ML BAG IV SCH (19:58)
[2024-07-04] MEDS: Heparin 5000 UNITS/ML 1 mL VIAL IV SCH (20:59)
[2024-07-05 03:52] LABS: ABS Eosinophils 0.1 10^3/uL (0.0-0.5); ABS Lymphocytes 0.6 10^3/uL (1.0-4.8); ABS Monocytes 0.7 10^3/uL (0.0-0.9); ABS Neutrophils 4.8 10^3/uL (1.5-7.6); Eosinophil % 0.8 %; Hematocrit 35.9 % (35-45); Hemoglobin 12.3 g/dL (11.5-14.3); Lymphocyte % 10.4 %; Mean Corpuscular Hemoglobin 29.6 pg (27-33); Mean Corpuscular Hgb Conc 34.3 g/dL (31-36); Mean Corpuscular Volume 86.4 fL (80-97); Mean Platelet Volume 6.7 fL (7.5-11.2); Platelet Count 363 10^3/uL (150-450); Red Blood Count 4.16 10^6/uL (3.63-4.92); Red Cell Distribution Width 15.6 % (12-17); White Blood Count 6.2 10^3/uL (3.8-11.8)
[2024-07-05 04:20] LABS: Calcium 8.8 mg/dL (8.6-10.3); Creatinine, Serum 0.78 mg/dL (0.51-0.95); Potassium 3.7 mmol/L (3.5-5.0); eGFR CKD-EPI 84.2 (>60)
[2024-07-05 19:01] LABS: Body Fluid Appearance Bloody; Body Fluid Color Red; Body Fluid Source Pleural Fluid
[2024-07-05 19:26] LABS: Body Fluid Total Nucleated 656 /mcL
[2024-07-05 20:19] LABS: Body Fluid Mono 20 %; Body Fluid Other Cells 23; Body Fluid Total Cells Counted 200; Body Fluid Variant Lymph 1 %
[2024-07-05] MEDS: Senna TAB 8.6 mg TAB PO PRN (23:18)
[2024-07-06 06:45] LABS: Calcium 8.7 mg/dL (8.6-10.3); Creatinine, Serum 0.87 mg/dL (0.51-0.95); Potassium 4.1 mmol/L (3.5-5.0); eGFR CKD-EPI 73.9 (>60)
[2024-07-06 06:48] LABS: ABS Lymphocytes 0.6 10^3/uL (1.0-4.8); ABS Monocytes 0.7 10^3/uL (0.0-0.9); Eosinophil % 0.8 %; Hematocrit 37.6 % (35-45); Hemoglobin 12.4 g/dL (11.5-14.3); Lymphocyte % 14.1 %; Mean Corpuscular Hemoglobin 29.5 pg (27-33); Mean Corpuscular Hgb Conc 32.9 g/dL (31-36); Mean Corpuscular Volume 89.6 fL (80-97); Mean Platelet Volume 7.5 fL (7.5-11.2); Nucleated Red Blood Cells % 0.1 %/100WBC (0.0-0.8); Platelet Count 260 10^3/uL (150-450); White Blood Count 4.4 10^3/uL (3.8-11.8)
[2024-07-06 11:52] LABS: Lactate Dehydrogenase, BF 100 U/L
[2024-07-06 13:37] LABS: Fluid Type, Protein, Total PLEURAL FLUID; Glucose, BF 133 mg/dL; Total Protein, BF 3.2 g/dL
[2024-07-06 13:43] VITALS: BP 103/68
[2024-07-07 11:08] LABS: Fluid Type: PLEURAL FLUID; Triglycerides (BF) 18 mg/dL
[2024-07-07 15:09] LABS: Fluid Type, Protein, Total PLEURAL FLUID; Glucose, BF 118 mg/dL; Total Protein, BF 3.2 g/dL
[2024-07-08 10:09] LABS: Fluid Type: PLEURAL; Triglycerides (BF) 19 mg/dL
[2024-07-08 10:57] LABS: Lactate Dehydrogenase, BF 189 U/L
== END 2024-07-06 11:05 | disposition home or self-care (01) | DRG 180 ==
LOC: ED 19:30 → MED 23:13 → SUATTDRO 07-04 02:45 → ICU 07-04 02:45 → MED 07-05 17:19
PROVIDERS: ADMIT Internal Medicine; ATTEND Student in an Organized Health Care Education/Training Program

== ENCOUNTER 2024-08-16 03:34 | Inpatient (IN) ==
[2024-08-16 04:20] LABS: ABS Lymphocytes 0.5 10^3/uL (1.0-4.8); ABS Monocytes 0.6 10^3/uL (0.0-0.9); ABS Neutrophils 8.6 10^3/uL (1.5-7.6); ABS Nucleated RBC 0.02 10^3/ul; Eosinophil % 0.2 %; Hematocrit 33.6 % (35-45); Hemoglobin 11.6 g/dL (11.5-14.3); Lymphocyte % 4.8 %; Mean Corpuscular Hgb Conc 34.4 g/dL (31-36); Mean Corpuscular Volume 84.4 fL (80-97); Mean Platelet Volume 7.6 fL (7.5-11.2); Nucleated Red Blood Cells % 0.2 %/100WBC (0.0-0.8); Platelet Count 255 10^3/uL (150-450); Red Blood Count 3.98 10^6/uL (3.63-4.92); White Blood Count 9.7 10^3/uL (3.8-11.8)
[2024-08-16 05:19] LABS: ALT 19 U/L (7-52); Albumin 3.1 g/dL (3.2-5.2); Albumin/Globulin Ratio 1.2 (1-3); Alkaline Phosphatase 224 U/L (35-149); Anion Gap 7 mmol/L (2-16); Blood Urea Nitrogen 47 mg/dL (6-24); C Reactive Protein 12.32 mg/L (<8.01); CO2 Carbon Dioxide 29 mmol/L (22-32); Calcium 8.6 mg/dL (8.6-10.3); Chloride 87 mmol/L (101-111); Creatinine, Serum 1.45 mg/dL (0.51-0.95); Globulin 2.5 g/dL (2-4); Glucose 128 mg/dL (70-100); Sodium 123 mmol/L (135-145); Total Bilirubin 1.7 mg/dL (0.2-1.0); Total Protein 5.6 g/dL (6.4-8.9)
[2024-08-16 05:36] LABS: Potassium Redraw 4.8 mmol/L (3.5-5.0)
[2024-08-16] MEDS: NS 0.9% 500 ml BAG 500 ML IV ONE (05:55)
[2024-08-16] MEDS: Iodixanol 320 (CONTRAST) 100 ML SDV IV ONE (05:59)
[2024-08-16 07:21] LABS: Urine Appearance Clear; Urine Bilirubin Negative (Negative); Urine Blood Negative (Negative); Urine Color Yellow; Urine Glucose Negative (Negative); Urine Ketones Negative (Negative); Urine Nitrite Negative (Negative); Urine Protein Negative (Negative); Urine Specific Gravity 1.018 (1.002-1.030); Urine Urobilinogen Negative (Negative)
[2024-08-16 09:41] LABS: Urine Osmo 467 mOsm/kg (150-1150)
[2024-08-16] MEDS ORDERED: Magnesium Hydroxide LIQ 30 ML UDC PO PRN (10:15)
[2024-08-16] MEDS: Albuterol HFA INHALER 8 gm MDI INH PRN (10:30)
[2024-08-16] MEDS: NS 0.9% 1000 ml BAG 1,000 ML IV SCH (10:33)
[2024-08-16 12:22] LABS: Calcium 8.3 mg/dL (8.6-10.3); Creatinine, Serum 1.48 mg/dL (0.51-0.95); Potassium 4.2 mmol/L (3.5-5.0); eGFR CKD-EPI 39.1 (>60)
[2024-08-16] MEDS: Senna TAB 8.6 mg TAB PO SCH (21:34)
[2024-08-16] MEDS: Potassium Chlor 20 meq TAB.ER PO SCH (21:35)
[2024-08-16] MEDS: Polyethylene Glycol 3350 17 GM PACKET PO SCH (22:26)
[2024-08-17 06:35] LABS: Calcium 7.8 mg/dL (8.6-10.3); Creatinine, Serum 1.05 mg/dL (0.51-0.95); Potassium 4.8 mmol/L (3.5-5.0)
[2024-08-17] MEDS: Cholecalciferol (VIT D3) 1,000 unit TAB PO SCH (08:41)
[2024-08-17] MEDS: Iodixanol 320 (CONTRAST) 100 ML SDV IV ONE (09:33)
[2024-08-17] MEDS: Gadoteridol (CONTRAST) 279.3 MG/ML 10 ML IV ONE (17:48)
[2024-08-18 07:00] LABS: ABS Lymphocytes 0.4 10^3/uL (1.0-4.8); ABS Monocytes 0.7 10^3/uL (0.0-0.9); ABS Neutrophils 5.9 10^3/uL (1.5-7.6); Eosinophil % 0.5 %; Hemoglobin 10.6 g/dL (11.5-14.3); Lymphocyte % 5.9 %; Mean Corpuscular Hemoglobin 29.3 pg (27-33); Mean Corpuscular Hgb Conc 35.4 g/dL (31-36); Mean Corpuscular Volume 82.9 fL (80-97); Mean Platelet Volume 7.4 fL (7.5-11.2); Platelet Count 220 10^3/uL (150-450); Red Blood Count 3.61 10^6/uL (3.63-4.92)
[2024-08-18 09:15] LABS: Calcium 7.8 mg/dL (8.6-10.3); Creatinine, Serum 0.94 mg/dL (0.51-0.95); Magnesium 2.1 mg/dL (1.9-2.7); Potassium 4.3 mmol/L (3.5-5.0); eGFR CKD-EPI 67.3 (>60)
[2024-08-19] MEDS: Polyethylene Glycol 3350 17 GM PACKET PO SCH (09:03)
[2024-08-19 11:35] LABS: TSH Ultra Thyroid Stim Horm 1.35 mcIU/mL (0.34-5.60)
[2024-08-19 11:37] LABS: Free T4 1.33 ng/dL (0.61-1.12)
[2024-08-20 05:39] LABS: ABS Lymphocytes 0.7 10^3/uL (1.0-4.8); ABS Monocytes 0.7 10^3/uL (0.0-0.9); ABS Nucleated RBC 0.01 10^3/ul; Eosinophil % 0.3 %; Hematocrit 28.8 % (35-45); Hemoglobin 10.1 g/dL (11.5-14.3); Lymphocyte % 7.9 %; Mean Corpuscular Hemoglobin 29.4 pg (27-33); Mean Corpuscular Hgb Conc 35.2 g/dL (31-36); Mean Corpuscular Volume 83.6 fL (80-97); Mean Platelet Volume 7.2 fL (7.5-11.2); Nucleated Red Blood Cells % 0.1 %/100WBC (0.0-0.8); Platelet Count 230 10^3/uL (150-450); Red Blood Count 3.45 10^6/uL (3.63-4.92); Red Cell Distribution Width 17.2 % (12-17); White Blood Count 8.5 10^3/uL (3.8-11.8)
[2024-08-20 05:59] LABS: Calcium 8.6 mg/dL (8.6-10.3); Creatinine, Serum 0.88 mg/dL (0.51-0.95); Potassium 5.5 mmol/L (3.5-5.0); eGFR CKD-EPI 72.9 (>60)
[2024-08-20] MEDS: SODIUM ZIRCONIUM CYCLOSILICATE 10 GM PACKET PO SCH (08:34)
[2024-08-20 14:56] LABS: Ferritin 239.2 ng/mL (11-307)
[2024-08-20 15:03] LABS: Vitamin D Total 25(OH) 13.6 ng/mL (20-50)
[2024-08-20 18:26] LABS: Folate 4.42 ng/mL (5.90-24.80)
[2024-08-21 08:30] LABS: Calcium 7.7 mg/dL (8.6-10.3); Creatinine, Serum 0.79 mg/dL (0.51-0.95); Potassium 4.5 mmol/L (3.5-5.0)
[2024-08-21 10:11] VITALS: BP 101/60
== END 2024-08-21 13:35 | DRG 187 ==
LOC: ED 03:34 → SUATTDRO 09:10 → EDHOLD 09:10 → MED 13:58
PROVIDERS: ADMIT Hospitalist; ATTEND Internal Medicine

== ENCOUNTER 2024-08-27 10:09 | Inpatient (IN) ==
[2024-08-27 12:17] LABS: Hematocrit 33.4 % (35-45); Hemoglobin 11.2 g/dL (11.5-14.3); Mean Corpuscular Hemoglobin 29.3 pg (27-33); Mean Corpuscular Hgb Conc 33.5 g/dL (31-36); Mean Corpuscular Volume 87.5 fL (80-97); Mean Platelet Volume 6.6 fL (7.5-11.2); Platelet Count 364 10^3/uL (150-450); Red Blood Count 3.82 10^6/uL (3.63-4.92); Red Cell Distribution Width 17.9 % (12-17)
[2024-08-27 12:18] LABS: ABS Lymphocytes 0.1 10^3/uL (1.0-4.8); ABS Monocytes 0.4 10^3/uL (0.0-0.9); ABS Neutrophils 15.4 10^3/uL (1.5-7.6); ABS Nucleated RBC 0.01 10^3/ul; Eosinophil % 0.1 %; Lymphocyte % 0.5 %; RBC Morphology Normal (Normal)
[2024-08-27 12:29] LABS: Albumin/Globulin Ratio 1.6 (1-3); C Reactive Protein 6.98 mg/L (<8.01); Calcium 8.3 mg/dL (8.6-10.3); Creatinine, Serum 0.63 mg/dL (0.51-0.95); Globulin 1.9 g/dL (2-4); Potassium 4.6 mmol/L (3.5-5.0); Total Bilirubin 1.6 mg/dL (0.2-1.0); Total Protein 4.9 g/dL (6.4-8.9); eGFR CKD-EPI 98.4 (>60)
[2024-08-27 13:01] LABS: High Sensitivity Troponin 1 Hr 14 pg/mL (<15)
[2024-08-27] MEDS: cefTRIAXone 1 gm/50 mL D5W 1 GM/50 ML BAG IV ONE (13:20)
[2024-08-27 18:23] LABS: PCO2 Arterial 60 mmHg (35-45)
[2024-08-27 18:29] LABS: PO2 Arterial < 38 mmHg (80-100)
[2024-08-27] MEDS ORDERED: Zosyn per Pharmacy NOTE FOLLOW UP SCH (19:00)
[2024-08-27] MEDS ORDERED: Vancomycin per Pharmacy 1 EA NOTE FOLLOW UP SCH (19:00)
[2024-08-27] MEDS ORDERED: DOXYcycline 100 MG in NS 0.9% 250 ml 250 ML IVPB SCH (19:00)
[2024-08-27] MEDS: Albuterol/Ipratropium NEB.SOL (2.5/0.5 MG) 3 ML NEB.SOLN INH SCH (19:13)
[2024-08-27 19:57] LABS: PCO2 Arterial 45 mmHg (35-45); PO2 Arterial 88 mmHg (80-100)
[2024-08-27] MEDS: methylPREDNISolone SOD SUCC 40 mg/ml 1 ml VIAL IV SCH (20:07)
[2024-08-27] MEDS: Piperacillin/Tazobac 3.375 BAG 3.375 GM/100 ML BAG IV ONE (20:07)
[2024-08-27 20:34] LABS: High Sensitivity Troponin 1 Hr 17 pg/mL (<15)
[2024-08-27] MEDS: Vancomycin 1,000 MG in NS 0.9% 250 ml 250 ML IVPB ONE (20:51)
[2024-08-27] MEDS ORDERED: Senna/Docusate 8.6/50 mg (NF) TAB PO SCH (21:00)
[2024-08-27 22:24] LABS: Body Fluid Total Nucleated 9968 /mcL
[2024-08-27] MEDS: Senna TAB 8.6 mg TAB PO SCH (22:34)
[2024-08-27 22:51] LABS: Body Fluid Appearance Cloudy; Body Fluid Color Yellow; Body Fluid Source Pleural Fluid
[2024-08-27 23:17] LABS: Body Fluid Mono 7 %; Body Fluid Total Cells Counted 200
[2024-08-28] MEDS: ZOSYN 3.375 GM Q8H per EXTENDED INFUSION IV SCH (00:23)
[2024-08-28 01:03] LABS: Urine Appearance Clear; Urine Bilirubin Negative (Negative); Urine Blood Negative (Negative); Urine Glucose Negative (Negative); Urine Ketones Negative (Negative); Urine Nitrite Negative (Negative); Urine Protein 1+ (>=30 mg/dL) (Negative); Urine Specific Gravity 1.032 (1.002-1.030); Urine Urobilinogen Negative (Negative); Urine pH 5.5 (5.0-8.0)
[2024-08-28 01:17] LABS: Urine Bacteria Absent /HPF (Absent); Urine Red Blood Cell Trace(0-2/hpf) /HPF (0-Trace); Urine Squamous Epithelial Cell Present /HPF (Absent); Urine White Blood Cell Trace(0-5/hpf) /HPF (0-Trace)
[2024-08-28 01:18] LABS: Urine Color Dark-Yellow
[2024-08-28] MEDS: Vancomycin 750 MG in NS 0.9% 250 ML IVPB SCH (05:15)
[2024-08-28 05:47] LABS: ABS Basophils 0.1 10^3/uL (0.0-0.1); ABS Lymphocytes 0.1 10^3/uL (1.0-4.8); ABS Monocytes 0.2 10^3/uL (0.0-0.9); ABS Neutrophils 17.4 10^3/uL (1.5-7.6); Hematocrit 28.5 % (35-45); Hemoglobin 9.7 g/dL (11.5-14.3); Lymphocyte % 0.8 %; Mean Corpuscular Hemoglobin 29.5 pg (27-33); Mean Corpuscular Hgb Conc 34.1 g/dL (31-36); Mean Corpuscular Volume 86.5 fL (80-97); Mean Platelet Volume 6.6 fL (7.5-11.2); Platelet Count 302 10^3/uL (150-450); Red Blood Count 3.29 10^6/uL (3.63-4.92); Red Cell Distribution Width 17.8 % (12-17); White Blood Count 17.9 10^3/uL (3.8-11.8)
[2024-08-28 06:25] LABS: Calcium 8.4 mg/dL (8.6-10.3); Creatinine, Serum 0.7 mg/dL (0.51-0.95); Magnesium 1.8 mg/dL (1.9-2.7); Potassium 4.5 mmol/L (3.5-5.0); eGFR CKD-EPI 95.9 (>60)
[2024-08-28] MEDS ORDERED: cefTRIAXone 1 gm/50 mL D5W 1 GM/50 ML BAG IV SCH (13:00)
[2024-08-29] MEDS: Vancomycin Trough Check NOTE FOLLOW UP ONE (00:30)
[2024-08-29] MEDS: Vancomycin 750 MG in NS 0.9% 250 ML IVPB SCH (00:55)
[2024-08-29] MEDS: Dexamethasone IV 4 MG/ML VIAL 1 ml VIAL IV SLOW PU SCH (08:22)
[2024-08-29 11:52] LABS: ABS Lymphocytes 0.1 10^3/uL (1.0-4.8); ABS Monocytes 0.4 10^3/uL (0.0-0.9); ABS Neutrophils 17.6 10^3/uL (1.5-7.6); Hematocrit 27.9 % (35-45); Hemoglobin 9.1 g/dL (11.5-14.3); Lymphocyte % 0.6 %; Mean Corpuscular Hemoglobin 28.5 pg (27-33); Mean Corpuscular Hgb Conc 32.8 g/dL (31-36); Mean Corpuscular Volume 86.9 fL (80-97); Mean Platelet Volume 6.7 fL (7.5-11.2); Platelet Count 284 10^3/uL (150-450); Red Blood Count 3.21 10^6/uL (3.63-4.92); Red Cell Distribution Width 17.9 % (12-17); White Blood Count 18.1 10^3/uL (3.8-11.8)
[2024-08-29 12:33] LABS: Calcium 8.1 mg/dL (8.6-10.3); Creatinine, Serum 0.66 mg/dL (0.51-0.95); Potassium 4.3 mmol/L (3.5-5.0); eGFR CKD-EPI 97.3 (>60)
[2024-08-29] MEDS: Magic MouthWash2-BEN/MAAL/LIDO/NYST 240 ML BTL (alt formulation) SWISH SPIT SCH (18:27)
[2024-08-30 10:29] LABS: ABS Lymphocytes 0.1 10^3/uL (1.0-4.8); ABS Monocytes 0.5 10^3/uL (0.0-0.9); ABS Neutrophils 17.4 10^3/uL (1.5-7.6); Hematocrit 28.5 % (35-45); Hemoglobin 9.3 g/dL (11.5-14.3); Lymphocyte % 0.6 %; Mean Corpuscular Hemoglobin 28.5 pg (27-33); Mean Corpuscular Hgb Conc 32.7 g/dL (31-36); Mean Corpuscular Volume 87.2 fL (80-97); Mean Platelet Volume 6.9 fL (7.5-11.2); Platelet Count 291 10^3/uL (150-450); Red Blood Count 3.27 10^6/uL (3.63-4.92); Red Cell Distribution Width 18.2 % (12-17)
[2024-08-30 11:10] LABS: Calcium 8.3 mg/dL (8.6-10.3); Creatinine, Serum 0.5 mg/dL (0.51-0.95); Magnesium 1.9 mg/dL (1.9-2.7); Potassium 4.4 mmol/L (3.5-5.0)
[2024-08-30] MEDS: Albuterol/Ipratropium NEB.SOL (2.5/0.5 MG) 3 ML NEB.SOLN INH SCH (19:11)
[2024-08-31] MEDS: Albuterol/Ipratropium NEB.SOL (2.5/0.5 MG) 3 ML NEB.SOLN INH ONE (00:11)
[2024-08-31] MEDS: HYDROmorphone 1 MG/1 ML SYRINGE IV SLOW PU PRN (06:21)
[2024-08-31] MEDS: Lidocaine 1% MPF 5 ML VIAL INJ ONE (09:33)
[2024-08-31 11:33] LABS: Lactate Dehydrogenase, BF 313 U/L
[2024-08-31 17:18] LABS: Fluid Type: PLEURAL FLUID; Triglycerides (BF) 21 mg/dL
[2024-08-31 21:36] VITALS: BP 113/72
[2024-08-31] MEDS: Morphine ORAL CONCENTRATE 5 MG/0.25 ML ORAL.SYRIN PO PRN (21:59)
[2024-09-01] MEDS: Magnesium Hydroxide LIQ 30 ML UDC PO PRN (07:37)
[2024-09-01] MEDS ORDERED: Atropine 1% (ORAL/SL) 15 ML BTL SL PRN (10:33)
[2024-09-01] MEDS ORDERED: Ondansetron ODT 4 mg TAB 4 MG TAB SL PRN (10:33)
[2024-09-01] MEDS ORDERED: Albuterol/Ipratropium NEB.SOL (2.5/0.5 MG) 3 ML NEB.SOLN INH PRN (18:47)
[2024-09-02 10:43] LABS: Fluid Type, Protein, Total PLEURAL FLUID; Glucose, BF 78 mg/dL; Total Protein, BF 1.9 g/dL
== END 2024-09-01 20:10 | disposition expired | DRG 177 ==
LOC: EDHOLD 10:09 → ED 10:09 → MED 16:10 → SUATTDRO 08-28 12:00
PROVIDERS: ADMIT Internal Medicine; ATTEND Student in an Organized Health Care Education/Training Program